=== PATIENT | female | born 1980 | race Caucasian/White ===

== ENCOUNTER 2021-02-07 14:50 | Outpatient (CLI) | payer OTHER, SELFPAY ==
--- NOTE | 2021-02-07 14:55 | MM_ITS ---
WS: [id number] SCREENING DIGITAL MAMMOGRAM WITH CAD HISTORY: SCREENING COMPARISON: 12/30/2012 Bilateral CC and MLO views submitted. Computer aided detection analyzed. Breast composition: The breasts are heterogeneously dense, which may obscure small masses. No suspici ous masses, microcalcifications or architectural distortion. MM/[place] [id number] IMPRESSION: BI-RADS: 1-Negative FOLLOW UP: 1 Year Follow-up
== END 2021-02-07 14:51 | disposition home or self-care (01) ==
LOC: RADSHAW 14:54
PROVIDERS: PCP Family Medicine; Visit Provider Family Medicine
DX: Z12.31 Encounter for screening mammogram for malignant neoplasm of breast (principal)
CPT/HCPCS: 77067

== ENCOUNTER → 2021-11-29 13:25 | Outpatient (BNVA) | payer OTHER, SELFPAY | PROVIDERS: PCP Family Medicine; Visit Provider Family Medicine | DX: J22 Unspecified acute lower respiratory infection (principal) | CPT/HCPCS: 87635 ==

== ENCOUNTER 2021-12-22 08:12 | Outpatient (CLI) | payer OTHER, SELFPAY ==
--- NOTE | 2021-12-22 08:14 | MM_ITS ---
WS: [id number] SCREENING DIGITAL BREAST TOMOSYNTHESIS MAMMOGRAM WITH CAD HISTORY: SCREENING COMPARISON: 02/07/2021 and 12/30/2012 Bilateral CC and MLO with tomosynthesis views submitted. Synthetic mammography reviewed. Computer aid ed detection analyzed. Breast composition: The breasts are heterogeneously dense, which may obscure small masses. No suspici ous masses, microcalcifications or architectural distortion. MM/[place] [id number] IMPRESSION: BI-RADS: 1-Negative FOLLOW UP: 1 Year Follow-up
== END 2021-12-22 08:13 | disposition home or self-care (01) ==
LOC: RAD 08:12
PROVIDERS: PCP Family Medicine; Visit Provider Family Medicine
DX: Z12.31 Encounter for screening mammogram for malignant neoplasm of breast (principal)
CPT/HCPCS: 77063; 77067

== ENCOUNTER 2022-05-21 16:05 | Outpatient (CLI) | payer OTHER, SELFPAY ==
--- NOTE | 2022-05-21 16:10 | MR_ITS ---
WS: [id number] MRI RIGHT ANKLE NONCONTRAST TECHNIQUE: Sagittal proton density, sagittal STIR, axial proton density, axial T1, axial T2 fat sat, coronal proton density, coronal proton density fat sat, coronal T2 fat sat. CLINICAL INFORMATION: Rule out peroneal brevis tendon laceration COMPARISON: None. FINDINGS: Prior laceration repair of the peroneal tendons. Peroneal tendons are normal in appearance proximal t o the repair. Irregularity of the tendons at the level of the repair with fluid extending along the p eroneal tendon sheath distal to the repair extending to the ankle. Peroneal longus and brevis appear intact distal to the tendon repair. Split tears involving the peroneus longus and brevis with fluid a nd tendinopathy. This is worse involving the peroneal brevis. Normal insertion of the peroneal longus . Split tear involving the peroneal brevis with somewhat diminutive tendon distally. This appears to insert distally at the base of the 5th metatarsal. Distal Achilles is normal in appearance. Small amount of tenosynovitis along the extensor and flexor compartment tendons which appear intact. Normal bone marrow signal in the medial and lateral malleolu s. Normal talar dome. Normal plantar aponeurosis. Normal bone marrow signal in the metatarsals. No ot her suspicious findings. MR/MR ankle RT wo con* [id number] IMPRESSION: 1. Peroneal lungs and brevis appear intact proximal and distal to the repair. There is tendinopathy with fluid and edema along the peroneal tendon sheaths di stal to the repair extending to the ankle. This is worse involving the peroneal brevis. 2. Split tears involving the peroneus longus and brevis with normal insertion of the peroneal longus. Somewhat diminutive peroneal brevis distally which appe ars to insert normally on the base of 5th metatarsal. Tendons appear grossly in tact. 3. Distal Achilles is normal in appearance. 4. Small amount of tenosynovitis along the extensor and flexor compartment ten dons. 5. No other suspicious abnormalities. 6. Tiny ankle effusion. Soft tissue edema about the lateral malleolus.
== END 2022-05-21 16:06 | disposition home or self-care (01) ==
LOC: RAD 16:08
PROVIDERS: PCP Family Medicine; Visit Provider Podiatrist Foot & Ankle Surgery
DX: S86.322A Laceration of muscle(s) and tendon(s) of peroneal muscle group at lower leg level, left leg, initial encounter (principal); M25.471 Effusion, right ankle; M65.871 Other synovitis and tenosynovitis, right ankle and foot; R60.0 Localized edema; X58.XXXA Exposure to other specified factors, initial encounter
CPT/HCPCS: 73721